=== PATIENT | female | born 1985 | race Caucasian/White ===

== ENCOUNTER 2022-01-27 10:18 | Emergency (ER) | payer OTHER, SELFPAY ==
--- NOTE | 2022-01-27 10:24 | ED.WOUNDLAC ---
HPI - Wound/Laceration General Chief Complaint: Wound/Laceration Stated Complaint: lac on left bicep Time Seen by Provider: 01/27/22 10:24 Source: patient and RN notes reviewed History of Present Illness HPI narrative: patient is a 36-year-old female who presents to the Urgent Care with complaints of a puncture laceration to the right bicep. Patient states that she fell onto a metal shoe rack last night at home which punctured into her arm. Patient states that she irrigated the wound with peroxide and has been using Neosporin and covering with a bandage. Patient states that it happened at approximately 10:30 a.m./11:00 p.m.. Patient believes that she may be up today on a tetanus shot and 2016. No other acute complaints. No acute distress noted. Patient aware of the plan of care. Some parts of this dictation were generated by voice recognition software and may contain typographical and/or grammatical inaccuracies. Related Data Home Medications Medication Instructions Recorded Confirmed sertraline 100 mg tablet 100 mg DAILY 01/27/22 01/27/22 Allergies Allergy/AdvReac Type Severity Reaction Status Date / Time acetaminophen [From Vicodin] AdvReac Vomiting Verified 01/27/22 10:36 hydrocodone [From Vicodin] AdvReac Vomiting Verified 01/27/22 10:36 Review of Systems Review of Systems: CONSTITUTIONAL: Denies fever, chills, or sweats. EYES: Denies visual changes, redness, or discharge. ENT: Denies rhinorrhea, congestion, sore throat, or otalgia. CARDIOVASCULAR: Denies chest pain, palpitations, or edema. RESPIRATORY: Denies cough or dyspnea. GASTROINTESTINAL: Denies abdominal pain, nausea, vomiting, or diarrhea. GENITOURINARY: Denies dysuria or hematuria. SKIN: reports of a laceration to the right biceps MUSCULOSKELETAL: Denies back pain, joint pain, or myalgia. NEUROLOGIC: Denies headache, numbness, or weakness. All other systems reviewed are negative, except as documented in HPI. PMFSH Comments At the time of my signature, I reviewed and agree with the nursing past medical, surgical, social, and family history. There is no relevant family history pertinent to the patient complaint. Exam Narrative: GENERAL: This is a well-nourished, well-developed patient, Tearful and anxious HEAD: normocephalic, atraumatic. EYES: PERRL. Sclera clear/white. Vision is grossly intact. EARS: External ears normal NOSE: External nose normal with no obvious nasal discharge, nares without redness, no rhinorrhea. THROAT: Mucous membranes moist NECK: Neck supple SKIN: 5 x 2 cm puncture laceration to the right bicep. warm, intact with no suspicious lesions or rash, good texture and turgor. NEURO: awake, alert, and oriented to person, place and time. There were no obvious focal neurologic abnormalities. EXTREMITIES: No clubbing, cyanosis, or edema. Course Course Level of Care: Express Care Visit Vital Signs Vital signs: Vital Signs Temperature 98.3 F 01/27/22 10:25 Pulse Rate 89 01/27/22 10:25 Respiratory Rate 20 01/27/22 10:25 Blood Pressure 112/64 01/27/22 10:25 Pulse Oximetry 96 01/27/22 10:25 Oxygen Delivery Room Air 01/27/22 10:25 Temperature 98.3 F 01/27/22 10:38 Pulse Rate 89 01/27/22 10:38 Respiratory Rate 20 01/27/22 10:38 Blood Pressure 112/64 01/27/22 10:38 Pulse Oximetry 96 01/27/22 10:38 Oxygen Delivery Room Air 01/27/22 10:38 Reviewed Procedures Laceration Laceration 1: Site: upper extremity Side (If applicable): right Size (cm): 5 Local Anesthetic: lidocaine 1% Amount of anesthesia used (mL): 2 Pre-repair: wound explored, irrigated and irrigated extensively ( technicare and normal saline) ====== Skin Level ====== Skin layer closed with: other (ethilon) Size (cm): 5-0 Number of sutures: 11 ====== Subcutaneous Layer ====== ====== Muscle Layer ====== ====== Tendon Layer =====
[2022-01-27 10:25] VITALS: BP 112/64; PULSE 89; RESP 20; TEMP 36.8; O2SAT 96
[2022-01-27 10:38] VITALS: BP 112/64; PULSE 89; RESP 20; TEMP 36.8; O2SAT 96
--- NOTE | 2022-01-27 10:58 | PC.NURSE ---
CNA PCT at bedside, suturing wound.
[2022-01-27] MEDS: TETANUS,DIPHTHERIA,AC PERTUSSIS ADULT (0.5 ML) BOOSTRIX IM (11:35)
== END 2022-01-27 11:44 | disposition home or self-care (01) ==
PROVIDERS: Emergency Provider Nurse Practitioner Family; PCP Hospitalist
DX: S41.112A Laceration without foreign body of left upper arm, initial encounter (principal); Z23 Encounter for immunization; W26.8XXA Contact with other sharp object(s), not elsewhere classified, initial encounter; Y92.009 Unspecified place in unspecified non-institutional (private) residence as the place of occurrence of the external cause
CPT/HCPCS: 12002; 90471; 90715; 99203; G0463